=== PATIENT | female | born 1995 | race Caucasian/White ===

== ENCOUNTER 2018-10-12 15:58 | Emergency (ER) | payer OTHER ==
[2018-10-12] MEDS: LIDOCAINE 1% (MDV) 20 ML INJ SC (16:34)
[2018-10-12] MEDS: IBUPROFEN 600 MG TAB PO (16:34)
== END 2018-10-12 16:55 | disposition home or self-care (01) ==
LOC: FTE 15:58
DX: L60.0 Ingrowing nail (principal)
CPT/HCPCS: 11765; 99282-25